=== PATIENT | female | born 1975 | race American Indian/Alaskan Native ===

== ENCOUNTER 2017-08-01 22:25 | Emergency (ER) | payer SELFPAY ==
[2017-08-01] MEDS ORDERED: ULTRAM ONE (23:55)
[2017-08-01] MEDS ORDERED: ULTRAM PO ONE (23:57)
[2017-08-02] MEDS ORDERED: CATAPRES PO ONE (00:51)
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
--- NOTE | 2017-08-02 01:45 | XRay Report ---
FINAL REPORT EXAM: XR FOREARM LT HISTORY: left forearm pain s/p fall TECHNIQUE: Two views of the left forearm were obtained. FINDINGS: There is no evidence of fracture or soft tissue injury. There is a spur along the dorsal margin of the olecranon. The wrist joint is not show any acute changes. IMPRESSION: No evidence of acute injury.
--- NOTE | 2017-08-02 01:48 | XRay Report ---
FINAL REPORT EXAM: XR KNEE 3V RT HISTORY: right knee pain s/p fall TECHNIQUE: AP and lateral views of the right knee were submitted. FINDINGS: There is no evidence of fracture or dislocation. All 3 compartments are well maintained. There is patellar spurring superiorly and inferiorly IMPRESSION: Patellar spurring. No acute injury.
--- NOTE | 2017-08-02 01:49 | XRay Report ---
FINAL REPORT EXAM: XR SPINE LUMBOSACRAL 2-3V HISTORY: low back pain s/p fall TECHNIQUE: Three views of the lumbar spine were submitted. FINDINGS: The disc heights and alignment appear normal. There is no evidence of acute fracture. The SI joints appear normal. The soft tissues are unremarkable. There is minimal endplate spurring in the lower dorsal spine. IMPRESSION: No evidence of acute injury.
--- NOTE | 2017-08-02 02:25 | Cat Scan Report ---
FINAL REPORT PROCEDURE: CT HEAD/BRAIN WO CON TECHNIQUE: Computerized tomography of the head was performed without contrast material. HISTORY: Headache after fall. COMPARISON: Nonenhanced and enhanced CT scans of the brain dated 07/01/2014. FINDINGS: Skull and scalp: Normal. Paranasal sinuses: Normal. Ventricles and subarachnoid spaces: Normal. Cerebrum: No evidence of hemorrhage, acute infarction or mass. 10 mm high attenuation extra-axial mass in the left vertex in the left frontal lobe posteriorly. Appearance similar to prior examinations. Cerebellum and brainstem: No evidence of hemorrhage, acute infarction or mass. Vasculature: Normal. Comments: None. IMPRESSION: No new CT evidence of acute intracranial pathology. 10 mm high attenuation extra-axial mass in the left vertex, similar to prior exam. Findings likely represent benign meningioma. Recommend MRI for further characterization if there is continued clinical concern and if patient has no contraindication to MRI.
[2017-08-02 05:00] VITALS: BP 140/89
== END 2017-08-02 03:20 | disposition home or self-care (01) ==
LOC: ED 22:25
DX: S56.912A Strain of unspecified muscles, fascia and tendons at forearm level, left arm, initial encounter (principal); S86.911A Strain of unspecified muscle(s) and tendon(s) at lower leg level, right leg, initial encounter; I10 Essential (primary) hypertension; G43.909 Migraine, unspecified, not intractable, without status migrainosus; I25.2 Old myocardial infarction; Z98.51 Tubal ligation status; V98.8XXA Other specified transport accidents, initial encounter; Y93.89 Activity, other specified; Y92.89 Other specified places as the place of occurrence of the external cause; Y99.8 Other external cause status
CPT/HCPCS: 70450; 72100

== ENCOUNTER 2017-10-17 17:50 | Emergency (ER) | payer SELFPAY ==
[2017-10-17] MEDS ORDERED: ASPIRIN ONE (17:58)
[2017-10-17] MEDS ORDERED: ASPIRIN PO ONE (17:59)
[2017-10-17 19:27] LABS: Basophils % (Auto) 0.3 % (0.0-1.8); Eosinophils # (Auto) 0.1 K/mm3 (0.0-0.4); Eosinophils % (Auto) 0.6 % (0.0-4.3); Hematocrit 33.8 % (30.3-42.9); Lymphocytes # (Auto) 2.9 K/mm3 (1.2-5.4); Lymphocytes % (Auto) 29.7 % (13.4-35.0); Mean Corpuscular HGB Conc 33 % (30-34); Mean Corpuscular Hemoglobin 27 pg (28-32); Mean Corpuscular Volume 81 fl (79-97); Monocytes # (Auto) 0.6 K/mm3 (0.0-0.8); Platelet Count 269 K/mm3 (140-440); Red Blood Count 4.16 M/mm3 (3.65-5.03); Red Cell Distribution Width 14.7 % (13.2-15.2)
[2017-10-17 19:43] LABS: BUN/Creatinine Ratio 11; Blood Urea Nitrogen 9 mg/dL (7-17); Calcium 9.5 mg/dL (8.4-10.2); Hemolysis Index 3
--- NOTE | 2017-10-17 23:49 | Emergency Department Report ---
ED Chest Pain HPI - General Chief Complaint: Chest Pain Stated Complaint: CHEST PAIN Time Seen by Provider: 10/17/17 23:26 Source: patient Mode of arrival: Ambulatory Limitations: No Limitations - History of Present Illness Initial Comments: 42-year-old woman presents with 3 day history of intermittent and somewhat mild left anterior chest pains, of variable nature and duration, generally lasting minutes, but sometimes hours, sometimes worse with deep breathing, or movement, without radiation, and which concerned her because of the persistence, and she comes in for evaluation to be sure there is no heart condition. Discomfort is mild, slightly achy, slightly tense, and generally 3-4 out of 10 in intensity. She is pain-free at this time. She has not had any fever chills or diaphoresis , no cough or congestion, no shortness of breath, no arm shoulder neck or jaw pain. No nausea or vomiting, she has been eating normally. Patient has a past history of hypertension, but due to lack of insurance, gets refills of her lisinopril only when she goes to the emergency department because she does not have funds to see a physician on a regular basis. Patient also Reports that she had a heart attack in 2014, treated here, but review her record shows that she had a false positive stress test, but cardiac catheterization was normal in all arteries, with ejection fraction of 60%, and normal echocardiography. CT scan of the brain and other visits, has also showed incidental finding of a small meningioma at the vertex, but otherwise patient has been stable. She does not smoke. Patient is currently pain-free, has no other symptoms, and is resting comfortably at time of examination Severity scale (0 -10): 4 - Related Data Previous Rx's Medication Instructions Recorded Last Taken Type Aspirin [Aspirin BABY CHEW TAB] 81 mg PO QDAY tab.chew 07/03/14 07/14/14 Rx Nitroglycerin [Nitrostat] 0.4 mg SL Q5M PRN #30 tab 07/03/14 07/14/14 Rx Acetaminophen/Codeine [Tylenol #3] 1 tab PO Q6H PRN #14 tab 07/15/14 Unknown Rx Ibuprofen [Motrin] 800 mg PO Q8HR PRN #30 tablet 07/29/15 Unknown Rx Lisinopril [Zestril TAB] 10 mg PO QDAY #30 tablet 07/29/15 Unknown Rx Metoprolol [Lopressor TAB] 12.5 mg PO BID #60 tablet 07/29/15 Unknown Rx HYDROcodone/APAP 7.5-325 [[place] 1 each PO Q8HR PRN #10 tablet 10/10/15 Unknown Rx 7.5-325 mg TAB] Cyclobenzaprine HCl [Flexeril 5 MG 5 mg PO TID PRN #15 tab 08/02/17 Unknown Rx TAB] Lisinopril [Prinivil] 10 mg PO DAILY #30 tablet 08/02/17 Unknown Rx Metoprolol [Lopressor] 12.5 mg PO BID #60 tablet 08/02/17 Unknown Rx Naproxen 500 mg PO TID PRN #15 tablet 08/02/17 Unknown Rx Allergies Allergy/AdvReac Type Severity Reaction Status Date / Time No Known Allergies Allergy Verified 07/14/14 15:58 Heart Score - HEART Score History: Slightly suspicious EKG: Normal Age: < 45 Risk factors: No known risk factors Troponin: < normal limit (negative cardiac catheterization 2014, normal coronary arteries) HEART Score: 0 ED Review of Systems ROS: Stated complaint: CHEST PAIN Other details as noted in HPI Comment: All other systems reviewed and negative Constitutional: denies: chills, fever Eyes: denies: vision change ENT: denies: throat pain Respiratory: denies: cough, orthopnea, shortness of breath, wheezing Cardiovascular: as per HPI, chest pain. denies: dyspnea on exertion, syncope, paroxysmal nocturnal dyspnea Endocrine: no symptoms reported Gastrointestinal: denies: abdominal pain, nausea, diarrhea Genitourinary: denies: urgency, dysuria, discharge Musculoskeletal: denies: back pain Skin: denies: rash, lesions Neurological: denies: headache, weakness, paresthesias Psychiatric: denies: anxiety, depression Hematological/Lymphatic: denies: easy bleeding, easy bruising ED Past Medical Hx - Past Medical History Previous Medical History?: No Hx Hypertension: Yes Hx Heart Attack/AMI: Yes (correction: normal cardiac catheterization and echocardiogram, July 2014) Hx Headaches / Migraines: Yes Additional medical history: sickle cell trait - Surgical History Additional Surgical History: tubal ligation. Cardiac cauterization July 04, 2014 - Social History Smoking Status: Never Smoker Substance Use Type: None - Medications Home Medications: Home Medications Medication Instructions Recorded Confirmed Last Taken Type Aspirin [Aspirin BABY CHEW TAB] 81 mg PO QDAY tab.chew 07/03/14 07/14/14 Rx Nitroglycerin [Nitrostat] 0.4 mg SL Q5M PRN #30 tab 07/03/14 07/14/14 07/14/14 Rx Acetaminophen/Codeine [Tylenol #3] 1 tab PO Q6H PRN #14 tab 07/15/14 Unknown Rx Ibuprofen [Motrin] 800 mg PO Q8HR PRN #30 tablet 07/29/15 Unknown Rx Lisinopril [Zestril TAB] 10 mg PO QDAY #30 tablet 07/29/15 Unknown Rx Metoprolol [Lopressor TAB] 12.5 mg PO BID #60 tablet 07/29/15 Unknown Rx HYDROcodone/APAP 7.5-325 [[place] 1 each PO Q8HR PRN #10 tablet 10/10/15 Unknown Rx 7.5-325 mg TAB] Cyclobenzaprine HCl [Flexeril 5 MG 5 mg PO TID PRN #15 tab 08/02/17 Unknown Rx TAB] Lisinopril [Prinivil] 10 mg PO DAILY #30 tablet 08/02/17 Unknown Rx Metoprolol [Lopressor] 12.5 mg PO BID #60 tablet 08/02/17 Unknown Rx Naproxen 500 mg PO TID PRN #15 tablet 08/02/17 Unknown Rx ED Physical Exam - General Limitations: No Limitations General appearance: alert, in no apparent distress - Head Head exam: Present: atraumatic, normocephalic - Eye Eye exam: Present: normal appearance, PERRL, EOMI - ENT ENT exam: Present: normal exam, mucous membranes moist - Neck Neck exam: Present: normal inspection, full ROM. Absent: tenderness - Respiratory Respiratory exam: Present: normal lung sounds bilaterally. Absent: respiratory distress, wheezes, rales, rhonchi, chest wall tenderness (nontender on palpation , but patient reports being pain-free at this time.) - Cardiovascular Cardiovascular Exam: Present: regular rate, normal rhythm, normal heart sounds. Absent: systolic murmur, diastolic murmur, gallop, S3, S4 - GI/Abdominal GI/Abdominal exam: Present: soft, normal bowel sounds. Absent: distended, tenderness, guarding, rebound - Rectal Rectal exam: Present: deferred - Extremities Exam Extremities exam: Present: normal inspection. Absent: pedal edema - Back Exam Back exam: Present: normal inspection. Absent: tenderness - Neurological Exam Neurological exam: Present: alert, oriented X3, CN II-XII intact. Absent: motor sensory deficit - Psychiatric Psychiatric exam: Present: normal affect, normal mood - Skin Skin exam: Present: warm, dry, intact ED Course Vital Signs 10/17/17 10/17/17 10/17/17 17:57 22:01 23:39 Temperature 37.3 C 36.7 C 36.8 C Pulse Rate 96 H 96 H 93 H Respiratory 16 14 18 Rate Blood Pressure 163/104 155/92 Blood Pressure 167/105 [Left] O2 Sat by Pulse 98 99 99 Oximetry KENZIE score - Kenzie Score Age > 65: (0) No Aspirin use within the Past 7 Days: (0) No 3 or more CAD Risk Factors: (1) Yes 2 or more Angina events in past 24 hrs: (1) Yes Known CAD with more than 50% Stenosis: (0) No Elevated Cardiac Markers: (0) No ST Deviation Greater than 0.5mm: (0) No KENZIE Score: 2 ED Medical Decision Making - Lab Data Result diagrams: 10/17/17 18:55 10/17/17 18:55 - EKG Data -: EKG Interpreted by Me (EKG was taken at 1804 and 2157 hrs. identical, no change from prior tracing) EKG shows normal: sinus rhythm (97 bpm), axis (QRS axis 41), intervals (normal IN intervals, normal QRS interval, QT interval normal at 445 and 442 ms corrected), QRS complexes, ST-T waves (nonspecific ST-T wave flattening, unchanged between tracings) Rate: normal - EKG Data When compared to previous EKG there are: no significant change (prior tracing of 10/10/2015) - Radiology Data Radiology results: report reviewed (portable chest x-ray) Chest x-ray, single view portable, shows no acute cardiopulmonary abnormality, with normal heart size, normal lung [place] bilaterally, no acute infiltrates, no pulmonary vascular congestion. This is not unremarkable reading. - Medical Decision Making Patient has typical findings of noncardiac chest pain, most likely muscular tenderness, possibly costochondritis, but negative examination here, with normal troponin levels, normal EKG twice, unchanged from previous tracing. Also , I cannot confirm patient's reported history of coronary artery disease, as her cardiac catheterization in 2014 showed normal coronary arteries. Given patient's atypical presentation, normal examination, this likely does not represent cardiac disease, but she will be referred back to her primary care physician, and may benefit from repeat nuclear stress testing on follow-up. She will be treated symptomatically with NSAIDs. - Differential Diagnosis acute coronary syndrome, pneumonia, muscular skeletal strain Critical Care Time: No Critical care attestation.: If time is entered above; I have spent that time in minutes in the direct care of this critically ill patient, excluding procedure time. ED Disposition Clinical Impression: Non-cardiac chest pain Disposition: - TO HOME OR SELFCARE Is pt being admited?: No Does the pt Need Aspirin: No Condition: Stable Instructions: Chest Pain (ED), Costochondritis (ED), Thoracic Pain (ED) Additional Instructions: Examination today is stable, and your symptoms, physical exam, and lab evaluation are stable, and did not suggest cardiac disease. Additionally, we have reviewed her prior cardiac catheterization, and this was normal, showing no findings of disease in any of your coronary arteries, and echocardiogram showed normal heart function as well. This is a reassuring finding, and indicates that your discomfort is typical of her symptoms today, and is likely muscular in origin. This can be treated with heating pad, gentle stretching, and nonsteroidal anti-inflammatories such as ibuprofen or Aleve for discomfort. We have provided referrals for an internal medicine physician for your follow- up for your general medical care, Referral for her health care coordinator, Dr. Bryan, as you may benefit from having a repeat cardiac stress test, which can safely be arranged in your health care coordinator's office on an outpatient basis, to see if there been any changes since your last catheterization. Return anytime for emergent repeat examination if she have any recurrent symptoms that are particularly worrisome for you. Otherwise you may continue your regular activities as before. Referrals: PRIMARY CARE, [Primary Care Provider] - 3-5 Days DAISHA BRYAN MD [Staff Physician] - 3-5 Days BHARGAV LOMAX MD [Staff Physician] - 3-5 Days Time of Disposition: 00:02
--- NOTE | 2017-10-18 00:04 | XRay Report ---
FINAL REPORT EXAM: XR CHEST 1V AP HISTORY: left ant. chest pain TECHNIQUE: Frontal portable view of the chest Comparison: None FINDINGS: There is no evidence of infiltrate, pneumothorax or pleural fluid collection. The cardiac silhouette is enlarged. This may be exaggerated by portable technique. The thoracic aorta is tortuous. The bony structures are unremarkable. Visualization detail of the thoracic spine is limited. IMPRESSION: 1. No evidence of an acute pulmonary process. 2. Enlarged cardiac silhouette. This may be exaggerated by portable technique. 3. Tortuosity thoracic aorta.
[2017-10-18 00:20] VITALS: BP 159/97
== END 2017-10-18 00:27 | disposition home or self-care (01) ==
LOC: ED 17:50
DX: R07.89 Other chest pain (principal); I10 Essential (primary) hypertension; G43.909 Migraine, unspecified, not intractable, without status migrainosus; I25.2 Old myocardial infarction; D57.3 Sickle-cell trait; Z98.51 Tubal ligation status
CPT/HCPCS: 36415; 71045; 80048; 84484; 85025; 93005; 93010; 99284

== ENCOUNTER 2020-01-17 11:07 | Emergency (ER) | payer SELFPAY ==
--- NOTE | 2020-01-17 12:07 | Emergency Department Report ---
ED ENT HPI - General Chief complaint: Dental/Oral Stated complaint: DENTAL PAIN,ABSCESS Time Seen by Provider: 01/17/20 12:01 Source: patient Mode of arrival: Ambulatory Limitations: No Limitations - History of Present Illness MD complaint: tooth pain -: Gradual, days(s) (1) Location: tooth # Severity: moderate Quality: dull Consistency: constant Worsens with: eating, movement Context- Dental: history of dental caries, poor dental care Associated Symptoms: toothache. denies: gum swelling, pain with swallowing, sore throat - Related Data Previous Rx's Medication Instructions Recorded Last Taken Type Aspirin [Aspirin BABY CHEW TAB] 81 mg PO QDAY tab.chew 07/03/14 07/14/14 Rx Nitroglycerin [Nitrostat] 0.4 mg SL Q5M PRN #30 tab 07/03/14 07/14/14 Rx Acetaminophen/Codeine [Tylenol #3] 1 tab PO Q6H PRN #14 tab 07/15/14 Unknown Rx Metoprolol [Lopressor TAB] 12.5 mg PO BID #60 tablet 07/29/15 Unknown Rx HYDROcodone/APAP 7.5-325 [[place] 1 each PO Q8HR PRN #10 tablet 10/10/15 Unknown Rx 7.5-325 mg TAB] Cyclobenzaprine HCl [Flexeril 5 MG 5 mg PO TID PRN #15 tab 08/02/17 Unknown Rx TAB] Metoprolol [Lopressor] 12.5 mg PO BID #60 tablet 08/02/17 Unknown Rx Naproxen 500 mg PO TID PRN #15 tablet 08/02/17 Unknown Rx lisinopriL [Prinivil] 10 mg PO DAILY #30 tablet 08/02/17 Unknown Rx Ibuprofen [Motrin 800 MG tab] 800 mg PO Q8HR PRN #30 tablet 10/18/17 Unknown Rx lisinopriL [Zestril TAB] 10 mg PO QDAY #30 tablet 10/18/17 Unknown Rx Amoxicillin [Amoxicillin TAB] 875 mg PO BID #20 tablet 01/17/20 Unknown Rx Chlorhexidine Mouthwash [Peridex] 15 ml MM BID #1 bottle 01/17/20 Unknown Rx Ketorolac [Toradol] 10 mg PO Q6H PRN #15 tablet 01/17/20 Unknown Rx Lidocaine Viscous 2% 5 ml MM Q3H PRN #120 udc 01/17/20 Unknown Rx Allergies Allergy/AdvReac Type Severity Reaction Status Date / Time No Known Allergies Allergy Verified 07/14/14 15:58 ED Dental HPI - General Chief complaint: Dental/Oral Stated complaint: DENTAL PAIN,ABSCESS Time Seen by Provider: 01/17/20 12:01 Source: patient Mode of arrival: Ambulatory Limitations: No Limitations - Related Data Previous Rx's Medication Instructions Recorded Last Taken Type Aspirin [Aspirin BABY CHEW TAB] 81 mg PO QDAY tab.chew 07/03/14 07/14/14 Rx Nitroglycerin [Nitrostat] 0.4 mg SL Q5M PRN #30 tab 07/03/14 07/14/14 Rx Acetaminophen/Codeine [Tylenol #3] 1 tab PO Q6H PRN #14 tab 07/15/14 Unknown Rx Metoprolol [Lopressor TAB] 12.5 mg PO BID #60 tablet 07/29/15 Unknown Rx HYDROcodone/APAP 7.5-325 [[place] 1 each PO Q8HR PRN #10 tablet 10/10/15 Unknown Rx 7.5-325 mg TAB] Cyclobenzaprine HCl [Flexeril 5 MG 5 mg PO TID PRN #15 tab 08/02/17 Unknown Rx TAB] Metoprolol [Lopressor] 12.5 mg PO BID #60 tablet 08/02/17 Unknown Rx Naproxen 500 mg PO TID PRN #15 tablet 08/02/17 Unknown Rx lisinopriL [Prinivil] 10 mg PO DAILY #30 tablet 08/02/17 Unknown Rx Ibuprofen [Motrin 800 MG tab] 800 mg PO Q8HR PRN #30 tablet 10/18/17 Unknown Rx lisinopriL [Zestril TAB] 10 mg PO QDAY #30 tablet 10/18/17 Unknown Rx Amoxicillin [Amoxicillin TAB] 875 mg PO BID #20 tablet 01/17/20 Unknown Rx Chlorhexidine Mouthwash [Peridex] 15 ml MM BID #1 bottle 01/17/20 Unknown Rx Ketorolac [Toradol] 10 mg PO Q6H PRN #15 tablet 01/17/20 Unknown Rx Lidocaine Viscous 2% 5 ml MM Q3H PRN #120 udc 01/17/20 Unknown Rx Allergies Allergy/AdvReac Type Severity Reaction Status Date / Time No Known Allergies Allergy Verified 07/14/14 15:58 ED Review of Systems ROS: Stated complaint: DENTAL PAIN,ABSCESS Other details as noted in HPI Comment: All other systems reviewed and negative ED Past Medical Hx - Past Medical History Previous Medical History?: Yes Hx Hypertension: Yes Hx Heart Attack/AMI: Yes (correction: normal cardiac catheterization and echocardiogram, July 2014) Hx Headaches / Migraines: Yes Additional medical history: sickle cell trait - Surgical History Past Surgical History?: Yes Additional Surgical History: tubal ligation. Cardiac cauterization July 04, 2014 - Social History Smoking Status: Never Smoker Substance Use Type: None - Medications Home Medications: Home Medications Medication Instructions Recorded Confirmed Last Taken Type Aspirin [Aspirin BABY CHEW TAB] 81 mg PO QDAY tab.chew 07/03/14 07/14/14 07/14/14 Rx Nitroglycerin [Nitrostat] 0.4 mg SL Q5M PRN #30 tab 07/03/14 07/14/14 07/14/14 Rx Acetaminophen/Codeine [Tylenol #3] 1 tab PO Q6H PRN #14 tab 07/15/14 Unknown Rx Metoprolol [Lopressor TAB] 12.5 mg PO BID #60 tablet 07/29/15 Unknown Rx HYDROcodone/APAP 7.5-325 [[place] 1 each PO Q8HR PRN #10 tablet 10/10/15 Unknown Rx 7.5-325 mg TAB] Cyclobenzaprine HCl [Flexeril 5 MG 5 mg PO TID PRN #15 tab 08/02/17 Unknown Rx TAB] Metoprolol [Lopressor] 12.5 mg PO BID #60 tablet 08/02/17 Unknown Rx Naproxen 500 mg PO TID PRN #15 tablet 08/02/17 Unknown Rx lisinopriL [Prinivil] 10 mg PO DAILY #30 tablet 08/02/17 Unknown Rx Ibuprofen [Motrin 800 MG tab] 800 mg PO Q8HR PRN #30 tablet 10/18/17 Unknown Rx lisinopriL [Zestril TAB] 10 mg PO QDAY #30 tablet 10/18/17 Unknown Rx Amoxicillin [Amoxicillin TAB] 875 mg PO BID #20 tablet 01/17/20 Unknown Rx Chlorhexidine Mouthwash [Peridex] 15 ml MM BID #1 bottle 01/17/20 Unknown Rx Ketorolac [Toradol] 10 mg PO Q6H PRN #15 tablet 01/17/20 Unknown Rx Lidocaine Viscous 2% 5 ml MM Q3H PRN #120 udc 01/17/20 Unknown Rx ED Physical Exam - General Limitations: No Limitations General appearance: alert, in no apparent distress - Head Head exam: Present: atraumatic, normocephalic - Eye Eye exam: Present: normal appearance, PERRL, EOMI Pupils: Present: normal accommodation - ENT ENT exam: Present: normal exam, mucous membranes moist, other (Infected right lower dental molar tooth #30 with some adjacent gingival erythema and abscess development. No no no exudate no bleeding. There is obvious inflammatory changes. Significant dental erosion is noted in a few caries noted throughout the dentition. Airway is patent tongue and uvula are midline.) - Neck Neck exam: Present: normal inspection - Respiratory Respiratory exam: Present: normal lung sounds bilaterally. Absent: respiratory distress - Cardiovascular Cardiovascular Exam: Present: regular rate, normal rhythm. Absent: systolic murmur, diastolic murmur, rubs, gallop - GI/Abdominal GI/Abdominal exam: Present: soft, normal bowel sounds - Extremities Exam Extremities exam: Present: normal inspection - Back Exam Back exam: Present: normal inspection - Neurological Exam Neurological exam: Present: alert, oriented X3 - Psychiatric Psychiatric exam: Present: normal affect, normal mood - Skin Skin exam: Present: warm, dry, intact, normal color. Absent: rash ED Medical Decision Making - Medical Decision Making 44-year-old female with reemergence of a right lower dental infection that has evolved to an abscess the current plan is to treat the abscess with antibiotics topical and ingestive and also treat the pain topical and injectable as well. Did reiterate the need to follow-up with the dentist once the infection has resolved for definitive treatment of the severe emergent infection. Advised on on dietary changes to promote healing as well Critical care attestation.: If time is entered above; I have spent that time in minutes in the direct care of this critically ill patient, excluding procedure time. ED Disposition Clinical Impression: Dental abscess Disposition: TO HOME OR SELFCARE Is pt being admited?: No Does the pt Need Aspirin: No Condition: Stable Instructions: Dental Abscess Prescriptions: Amoxicillin [Amoxicillin TAB] 875 mg PO BID #20 tablet Lidocaine Viscous 2% 5 ml MM Q3H PRN #120 udc PRN Reason: Pain, Moderate (4-6) Chlorhexidine Mouthwash [Peridex] 15 ml MM BID #1 bottle Ketorolac [Toradol] 10 mg PO Q6H PRN #15 tablet PRN Reason: Pain Referrals: [facility] [Outside] - 3-5 Days
[2020-01-17 13:34] VITALS: BP 148/84
== END 2020-01-17 13:05 | disposition home or self-care (01) ==
LOC: ED 11:07
DX: K04.7 Periapical abscess without sinus (principal); I10 Essential (primary) hypertension; I25.2 Old myocardial infarction; G43.909 Migraine, unspecified, not intractable, without status migrainosus; Z98.51 Tubal ligation status; Z98.890 Other specified postprocedural states; Z79.82 Long term (current) use of aspirin; Z79.899 Other long term (current) drug therapy
CPT/HCPCS: 99281

== ENCOUNTER 2020-03-17 12:18 | Emergency (ER) | payer SELFPAY ==
[2020-03-17 12:34] VITALS: BP 190/117
--- NOTE | 2020-03-17 12:52 | Emergency Department Report ---
ED ENT HPI - General Chief complaint: Skin/Abscess/Foreign Body Stated complaint: ABCESS/SWOLLEN JAW RT SIDE Time Seen by Provider: 03/17/20 12:44 Source: patient Mode of arrival: Ambulatory Limitations: No Limitations - History of Present Illness Initial comments: This is a 45-year-old female nontoxic, well nourished in appearance, no acute signs of distress presents to the ED with c/o of right lower toothache with some swelling that occurred 3 days ago. Patient stated she was seen here few months ago and was treated with Augmentin and has resolved but came back again. Patient describes toothache as aching level of 8 out of 10. Patient denies any numbness, tingling, fever, chills, headache, stiff neck, abdominal pain, chest pain, shortness of breath. Patient denies any drug allergies. Patient stated has past medical history of hypertension and forgot to take her blood pressure medication this morning. MD complaint: tooth pain -: days(s) Location: tooth # 1 - Pain here Severity: mild Severity scale (0 -10): 8 Quality: aching Consistency: constant Improves with: none Worsens with: none Context- Dental: history of dental caries, poor dental care Associated Symptoms: gum swelling, toothache. denies: fever, cough, pain with swallowing, sore throat, tinnitus, hearing loss, discharge from ear, rhinorrhea - Related Data Previous Rx's Medication Instructions Recorded Last Taken Type Aspirin [Aspirin BABY CHEW TAB] 81 mg PO QDAY tab.chew 07/03/14 07/14/14 Rx Nitroglycerin [Nitrostat] 0.4 mg SL Q5M PRN #30 tab 07/03/14 07/14/14 Rx Acetaminophen/Codeine [Tylenol #3] 1 tab PO Q6H PRN #14 tab 07/15/14 Unknown Rx Metoprolol [Lopressor TAB] 12.5 mg PO BID #60 tablet 07/29/15 Unknown Rx HYDROcodone/APAP 7.5-325 [[place] 1 each PO Q8HR PRN #10 tablet 10/10/15 Unknown Rx 7.5-325 mg TAB] Cyclobenzaprine HCl [Flexeril 5 MG 5 mg PO TID PRN #15 tab 08/02/17 Unknown Rx TAB] Metoprolol [Lopressor] 12.5 mg PO BID #60 tablet 08/02/17 Unknown Rx Naproxen 500 mg PO TID PRN #15 tablet 08/02/17 Unknown Rx lisinopriL [Prinivil] 10 mg PO DAILY #30 tablet 08/02/17 Unknown Rx Ibuprofen [Motrin 800 MG tab] 800 mg PO Q8HR PRN #30 tablet 10/18/17 Unknown Rx lisinopriL [Zestril TAB] 10 mg PO QDAY #30 tablet 10/18/17 Unknown Rx Amoxicillin [Amoxicillin TAB] 875 mg PO BID #20 tablet 01/17/20 Unknown Rx Chlorhexidine Mouthwash [Peridex] 15 ml MM BID #1 bottle 01/17/20 Unknown Rx Ketorolac [Toradol] 10 mg PO Q6H PRN #15 tablet 01/17/20 Unknown Rx Lidocaine Viscous 2% 5 ml MM Q3H PRN #120 udc 01/17/20 Unknown Rx Chlorhexidine Mouthwash [Peridex] 15 ml MM BID #1 bottle 03/17/20 Unknown Rx Clindamycin [Clindamycin CAP] 300 mg PO Q8H #21 cap 03/17/20 Unknown Rx Naproxen 500 mg PO Q12H PRN #12 tablet 03/17/20 Unknown Rx Allergies Allergy/AdvReac Type Severity Reaction Status Date / Time No Known Allergies Allergy Verified 03/17/20 12:28 ED Dental HPI - General Chief complaint: Skin/Abscess/Foreign Body Stated complaint: ABCESS/SWOLLEN JAW RT SIDE Time Seen by Provider: 03/17/20 12:44 Source: patient Mode of arrival: Ambulatory Limitations: No Limitations - Related Data Previous Rx's Medication Instructions Recorded Last Taken Type Aspirin [Aspirin BABY CHEW TAB] 81 mg PO QDAY tab.chew 07/03/14 07/14/14 Rx Nitroglycerin [Nitrostat] 0.4 mg SL Q5M PRN #30 tab 07/03/14 07/14/14 Rx Acetaminophen/Codeine [Tylenol #3] 1 tab PO Q6H PRN #14 tab 07/15/14 Unknown Rx Metoprolol [Lopressor TAB] 12.5 mg PO BID #60 tablet 07/29/15 Unknown Rx HYDROcodone/APAP 7.5-325 [[place] 1 each PO Q8HR PRN #10 tablet 10/10/15 Unknown Rx 7.5-325 mg TAB] Cyclobenzaprine HCl [Flexeril 5 MG 5 mg PO TID PRN #15 tab 08/02/17 Unknown Rx TAB] Metoprolol [Lopressor] 12.5 mg PO BID #60 tablet 08/02/17 Unknown Rx Naproxen 500 mg PO TID PRN #15 tablet 08/02/17 Unknown Rx lisinopriL [Prinivil] 10 mg PO DAILY #30 tablet 08/02/17 Unknown Rx Ibuprofen [Motrin 800 MG tab] 800 mg PO Q8HR PRN #30 tablet 10/18/17 Unknown Rx lisinopriL [Zestril TAB] 10 mg PO QDAY #30 tablet 10/18/17 Unknown Rx Amoxicillin [Amoxicillin TAB] 875 mg PO BID #20 tablet 01/17/20 Unknown Rx Chlorhexidine Mouthwash [Peridex] 15 ml MM BID #1 bottle 01/17/20 Unknown Rx Ketorolac [Toradol] 10 mg PO Q6H PRN #15 tablet 01/17/20 Unknown Rx Lidocaine Viscous 2% 5 ml MM Q3H PRN #120 udc 01/17/20 Unknown Rx Chlorhexidine Mouthwash [Peridex] 15 ml MM BID #1 bottle 03/17/20 Unknown Rx Clindamycin [Clindamycin CAP] 300 mg PO Q8H #21 cap 03/17/20 Unknown Rx Naproxen 500 mg PO Q12H PRN #12 tablet 03/17/20 Unknown Rx Allergies Allergy/AdvReac Type Severity Reaction Status Date / Time No Known Allergies Allergy Verified 03/17/20 12:28 ED Review of Systems ROS: Stated complaint: ABCESS/SWOLLEN JAW RT SIDE Other details as noted in HPI Comment: All other systems reviewed and negative Constitutional: denies: chills, fever Eyes: denies: eye pain, eye discharge, vision change ENT: dental pain. denies: ear pain, throat pain Respiratory: denies: cough, shortness of breath, wheezing Cardiovascular: denies: chest pain, palpitations Endocrine: no symptoms reported Gastrointestinal: denies: abdominal pain, nausea, diarrhea Genitourinary: denies: urgency, dysuria, discharge Musculoskeletal: denies: back pain, joint swelling, arthralgia Skin: denies: rash, lesions Neurological: denies: headache, weakness, paresthesias Psychiatric: denies: anxiety, depression Hematological/Lymphatic: denies: easy bleeding, easy bruising ED Past Medical Hx - Past Medical History Hx Hypertension: Yes Hx Heart Attack/AMI: Yes (correction: normal cardiac catheterization and echocardiogram, July 2014) Hx Headaches / Migraines: Yes Additional medical history: sickle cell trait - Surgical History Additional Surgical History: tubal ligation. Cardiac cauterization July 04, 2014 - Social History Smoking Status: Never Smoker Substance Use Type: None - Medications Home Medications: Home Medications Medication Instructions Recorded Confirmed Last Taken Type Aspirin [Aspirin BABY CHEW TAB] 81 mg PO QDAY tab.chew 07/03/14 07/14/14 07/14/14 Rx Nitroglycerin [Nitrostat] 0.4 mg SL Q5M PRN #30 tab 07/03/14 07/14/14 07/14/14 Rx Acetaminophen/Codeine [Tylenol #3] 1 tab PO Q6H PRN #14 tab 07/15/14 Unknown Rx Metoprolol [Lopressor TAB] 12.5 mg PO BID #60 tablet 07/29/15 Unknown Rx HYDROcodone/APAP 7.5-325 [[place] 1 each PO Q8HR PRN #10 tablet 10/10/15 Unknown Rx 7.5-325 mg TAB] Cyclobenzaprine HCl [Flexeril 5 MG 5 mg PO TID PRN #15 tab 08/02/17 Unknown Rx TAB] Metoprolol [Lopressor] 12.5 mg PO BID #60 tablet 08/02/17 Unknown Rx Naproxen 500 mg PO TID PRN #15 tablet 08/02/17 Unknown Rx lisinopriL [Prinivil] 10 mg PO DAILY #30 tablet 08/02/17 Unknown Rx Ibuprofen [Motrin 800 MG tab] 800 mg PO Q8HR PRN #30 tablet 10/18/17 Unknown Rx lisinopriL [Zestril TAB] 10 mg PO QDAY #30 tablet 10/18/17 Unknown Rx Amoxicillin [Amoxicillin TAB] 875 mg PO BID #20 tablet 01/17/20 Unknown Rx Chlorhexidine Mouthwash [Peridex] 15 ml MM BID #1 bottle 01/17/20 Unknown Rx Ketorolac [Toradol] 10 mg PO Q6H PRN #15 tablet 01/17/20 Unknown Rx Lidocaine Viscous 2% 5 ml MM Q3H PRN #120 udc 01/17/20 Unknown Rx Chlorhexidine Mouthwash [Peridex] 15 ml MM BID #1 bottle 03/17/20 Unknown Rx Clindamycin [Clindamycin CAP] 300 mg PO Q8H #21 cap 03/17/20 Unknown Rx Naproxen 500 mg PO Q12H PRN #12 tablet 03/17/20 Unknown Rx ED Physical Exam - General Limitations: No Limitations General appearance: alert, in no apparent distress - Head Head exam: Present: atraumatic, normocephalic - Eye Eye exam: Present: normal appearance - Expanded ENT Exam Expanded Ear exam: Present: normal external inspection Mouth exam: Present: normal external inspection, tongue normal. Absent: drooling, trismus, muffled voice Teeth exam: Present: dental caries, fractured tooth #, dental tenderness #, gingival enlargement, other (Slight facial swelling with no induration or fluctuance.) Throat exam: Positive: normal inspection, other (Uvula midline). Negative: tonsillar erythema, tonsillomegaly, tonsillar exudate, R peritonsillar mass, L peritonsillar mass - Neck Neck exam: Present: normal inspection, full ROM. Absent: tenderness, meningismus, lymphadenopathy - Respiratory Respiratory exam: Absent: respiratory distress - Extremities Exam Extremities exam: Present: full ROM - Back Exam Back exam: Present: normal inspection, full ROM. Absent: tenderness, CVA tenderness (R), CVA tenderness (L), muscle spasm, paraspinal tenderness, vertebral tenderness, rash noted - Neurological Exam Neurological exam: Present: alert, oriented X3, normal gait - Psychiatric Psychiatric exam: Present: normal affect, normal mood - Skin Skin exam: Present: warm, dry, intact, normal color. Absent: rash ED Course Vital Signs 03/17/20 12:33 Temperature 98.7 F Pulse Rate 107 H Respiratory 20 Rate Blood Pressure 190/117 [Right] O2 Sat by Pulse 97 Oximetry - Reevaluation(s) Reevaluation #1: 03/17/20 13:02 Patient is speaking in full sentences with no signs of distress noted. ED Medical Decision Making - Medical Decision Making This is a 45-year-old female that presents with gingivitis and dental caries. Patient is stable and was examined by me. There is slight swelling to the right lower mandible but upon exam there is no induration or fluctuance to drain the abscess. Patient is discharged with clindamycin. He had strict instructions to follow-up with oral maxillary surgeon in 24 hours or if symptoms would worsen to return to emergency room as was possible. Patient is discharged with naproxen, Peridex and Clinda. At time of discharge, the patient does not seem toxic or ill in appearance. No acute signs of distress noted. Patient agrees to discharge treatment plan of care. No further questions noted by the patient. According to ACEP: (1) in ED patients with asymptomatic markedly elevated blood pressure, routine screening for acute target organ injury (eg, serum creatinine, urinalysis, ECG) is not required. (1) In patients with asymptomatic markedly elevated blood pressure, routine ED medical intervention is not required. Critical care attestation.: If time is entered above; I have spent that time in minutes in the direct care of this critically ill patient, excluding procedure time. ED Disposition Clinical Impression: Dental abscess Disposition: [id number] TO HOME OR SELFCARE Is pt being admited?: No Does the pt Need Aspirin: No Condition: Stable Instructions: Dental Abscess, [id number] Additional Instructions: Follow-up with oral maxillary surgeon in 24 hours or if symptoms would worsen to return to emergency room as was possible. 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 [employer] Address: [facility] [id number], [place] [address] Hours: Wednesday Closed Wednesday 8AM-1PM, 2-5PM Wednesday 8AM-1PM, 2-5PM Wednesday 8AM-1PM, 2-5PM 8AM-1PM, 2-5PM Wednesday 7AM-2PM Wednesday Closed Prescriptions: Clindamycin [Clindamycin CAP] 300 mg PO Q8H #21 cap Naproxen 500 mg PO Q12H PRN #12 tablet PRN Reason: Pain , Severe (7-10) Chlorhexidine Mouthwash [Peridex] 15 ml MM BID #1 bottle Referrals: PRIMARY MD CUATE [Referring] - 3-5 Days MICHELLE WHYTE MD [Staff Physician] - 3-5 Days [facility] [Outside] - 3-5 Days Time of Disposition: 13:05
== END 2020-03-17 13:35 | disposition home or self-care (01) ==
LOC: ED 12:18
DX: K04.7 Periapical abscess without sinus (principal); I10 Essential (primary) hypertension; I25.2 Old myocardial infarction; G43.909 Migraine, unspecified, not intractable, without status migrainosus; Z98.51 Tubal ligation status; Z98.890 Other specified postprocedural states; Z79.899 Other long term (current) drug therapy
CPT/HCPCS: 99282

== ENCOUNTER 2020-07-31 16:11 | Emergency (ER) | payer SELFPAY ==
--- NOTE | 2020-07-31 19:38 | Emergency Department Report ---
Upper Extremity - HPI Chief Complaint: Extremity Injury, Upper Stated Complaint: RIGHT ARM AND HAND PAIN Time Seen by Provider: 07/31/20 19:25 Upper Extremity: Right Forearm, Right Wrist, Right Hand, Right Thumb, Right Index Finger, Right Middle Finger, Right Ring Finger, Right Little Finger Occurred When: >5 Days (about 1 mth) Severity: severe Symptoms: Yes Pain with Movement, Yes Limited Range of Movement, No Deformity, No Numbness, No Weakness, No Swelling, No Bruising/Ecchymosis, No Laceration or Abrasion Other History: 45-year-old female with a past medical history of hypertension presents to the ER today with complaints of pain in her right fingers and hand especially the right thumb and right wrist which radiates down into her right forearm. Patient reports difficulty fully extending her right thumb due to pain and also feels like her thumb gets stuck in certain positions. She reports tingling in her fingers. She denies any injury. She states that she right reports at work but typically just one sheet a day. She reports no swelling, bruising, erythema or any other associated symptoms. ED Review of Systems ROS: Stated complaint: RIGHT ARM AND HAND PAIN Other details as noted in HPI Comment: All other systems reviewed and negative Constitutional: denies: chills, fever Eyes: denies: eye pain, eye discharge, vision change Respiratory: denies: cough, shortness of breath, SOB with exertion, SOB at rest, wheezing Cardiovascular: denies: chest pain, palpitations, edema, syncope, paroxysmal nocturnal dyspnea Gastrointestinal: denies: abdominal pain, nausea, diarrhea, constipation, hematemesis, melena, hematochezia Genitourinary: denies: urgency, dysuria, discharge Musculoskeletal: arthralgia, myalgia Skin: denies: rash, lesions, change in color, change in hair/nails Neurological: denies: headache, weakness, numbness, paresthesias, confusion, abnormal gait, vertigo Psychiatric: as per HPI. denies: auditory hallucinations, visual hallucinations, homicidal thoughts, suicidal thoughts Hematological/Lymphatic: denies: easy bleeding, easy bruising ED Past Medical Hx - Past Medical History Hx Hypertension: Yes Hx Heart Attack/AMI: Yes (normal cardiac catheterization and echocardiogram, July 2014) Hx Headaches / Migraines: Yes Additional medical history: sickle cell trait - Surgical History Additional Surgical History: tubal ligation. Cardiac cauterization July 04, 2014 - Social History Smoking Status: Never Smoker Substance Use Type: None - Medications Home Medications: Home Medications Medication Instructions Recorded Confirmed Last Taken Type Aspirin [Aspirin BABY CHEW TAB] 81 mg PO QDAY tab.chew 07/03/14 07/14/14 07/14/14 Rx Nitroglycerin [Nitrostat] 0.4 mg SL Q5M PRN #30 tab 07/03/14 07/14/14 07/14/14 Rx Acetaminophen/Codeine [Tylenol #3] 1 tab PO Q6H PRN #14 tab 07/15/14 Unknown Rx Metoprolol [Lopressor TAB] 12.5 mg PO BID #60 tablet 07/29/15 Unknown Rx HYDROcodone/APAP 7.5-325 [[place] 1 each PO Q8HR PRN #10 tablet 10/10/15 Unknown Rx 7.5-325 mg TAB] Cyclobenzaprine HCl [Flexeril 5 MG 5 mg PO TID PRN #15 tab 08/02/17 Unknown Rx TAB] Naproxen 500 mg PO TID PRN #15 tablet 08/02/17 Unknown Rx lisinopriL [Prinivil] 10 mg PO DAILY #30 tablet 08/02/17 Unknown Rx lisinopriL [Zestril TAB] 10 mg PO QDAY #30 tablet 10/18/17 Unknown Rx Amoxicillin [Amoxicillin TAB] 875 mg PO BID #20 tablet 01/17/20 Unknown Rx Chlorhexidine Mouthwash [Peridex] 15 ml MM BID #1 bottle 01/17/20 Unknown Rx Ketorolac [Toradol] 10 mg PO Q6H PRN #15 tablet 01/17/20 Unknown Rx Lidocaine Viscous 2% 5 ml MM Q3H PRN #120 udc 01/17/20 Unknown Rx Chlorhexidine Mouthwash [Peridex] 15 ml MM BID #1 bottle 03/17/20 Unknown Rx Clindamycin [Clindamycin CAP] 300 mg PO Q8H #21 cap 03/17/20 Unknown Rx Naproxen 500 mg PO Q12H PRN #12 tablet 03/17/20 Unknown Rx Ibuprofen [Motrin 800 MG tab] 800 mg PO Q8HR PRN #30 tablet 07/31/20 Unknown Rx Metoprolol [Lopressor TAB] 12.5 mg PO BID #60 tablet 07/31/20 Unknown Rx methylPREDNISolone [Medrol 4MG 4 mg PO DAILY #1 tab.ds.pk 07/31/20 Unknown Rx DOSEPAK (21 tabs)] Upper Extremity Exam - Exam General: Vital signs noted. No distress. Alert and acting appropriately. Head and Torso: No HEENT Abnormality, No Chest/Lungs Abnormality Shoulder Exam: Yes Normal Range of Motion in Shoulder, No Shoulder Tenderness, No Clavicle Tenderness, No Shoulder Deformity, No AC Joint Tenderness Arm Exam: No Arm/Humerus Tenderness, No Arm Deformity Elbow: Yes Normal Range of Motion in Elbow, No Elbow Tenderness, No Elbow Deformity Forearm: No Forearm Tenderness, No Forearm Deformity, No Pain with Pronation, No Pain with Supination Wrist: Yes Wrist Tenderness (Mild tenderness to palpation to the volar aspect of the right wrist), Yes Normal ROM in Wrist, No Wrist Deformity, No Snuffbox Tenderness Hand: Yes Hand Tenderness (Patient has tenderness over over the first metacarpal, as well as the thumb and she has tenderness over the third metacarpal bone as well as that third finger of the right hand), No Hand Deformity, No Normal ROM in Digit(s) (She appears to have normal range of motion of wrist, hand and fingers but she does have pain with movement especially of the right thumb.), No Digit(s) Deformity, No Tendon Dysfunction CMS Exam: Yes Normal Distal Pulses, Yes Normal Capillary Refill, Yes Normal Distal Sensation, No Broken Skin ED Course Vital Signs 07/31/20 19:15 Temperature 98.8 F Pulse Rate 94 H Respiratory 18 Rate Blood Pressure 169/121 O2 Sat by Pulse 98 Oximetry ED Medical Decision Making - Medical Decision Making Suspect tendinitis and/or carpal tunnel syndrome at this time. Physical exam does not suggest septic joint, cellulitis, acute arterial occlusion, DVT or any other acute emergent conditions requiring any work-up at this time. Discussed suspected diagnosis with patient as well as treatment plan. Patient blood pressure noted to be elevated at triage she admits that she has been out of Lopressor for a while but she did take her lisinopril today. She has no symptoms related to hypertension. Repeat of her blood pressure showed improvement without intervention. Patient is not toxic or ill-appearing. Patient stable at time of discharge. Critical care attestation.: If time is entered above; I have spent that time in minutes in the direct care of this critically ill patient, excluding procedure time. ED Disposition Clinical Impression: Tendonitis of right hand, Carpal tunnel syndrome of right wrist, Hypertension, Non compliance w medication regimen Disposition: DC-01 TO HOME OR SELFCARE Is pt being admited?: No Does the pt Need Aspirin: No Condition: Stable Instructions: Carpal Tunnel Syndrome, [id number], Tendinitis, Hypertension, Adult, [id number], Hypertension (ED) Additional Instructions: I recommend that you wear the wrist splint every day and of course take it out when you shower and you can also go to work with the wrist splint. Take the Motrin and the prednisone as prescribed. Continue taking your lisinopril and restart your Lopressor take any daily as prescribed. Follow-up with carburetor specialist and/or primary care doctor listed on your discharge instructions in 1 week. Return to the ER if your symptoms worsens Prescriptions: Metoprolol [Lopressor TAB] 12.5 mg PO BID #60 tablet methylPREDNISolone [Medrol 4MG DOSEPAK (21 tabs)] 4 mg PO DAILY #1 tab.ds.pk Ibuprofen [Motrin 800 MG tab] 800 mg PO Q8HR PRN #30 tablet PRN Reason: Pain Referrals: MICHELLE WHYTE MD [Staff Physician] - 3-5 Days Forms: Work/School Release Form(ED) Time of Disposition: 19:46
[2020-07-31 19:46] VITALS: BP 159/97
== END 2020-07-31 19:55 | disposition home or self-care (01) ==
LOC: ED 16:11
DX: M77.8 Other enthesopathies, not elsewhere classified (principal); I10 Essential (primary) hypertension; G56.01 Carpal tunnel syndrome, right upper limb; Z91.19 Patient's noncompliance with other medical treatment and regimen; G43.909 Migraine, unspecified, not intractable, without status migrainosus; Z98.51 Tubal ligation status; Z95.818 Presence of other cardiac implants and grafts; Z98.890 Other specified postprocedural states
CPT/HCPCS: 99282

== ENCOUNTER 2020-11-25 10:38 | Emergency (ER) | payer SELFPAY ==
--- NOTE | 2020-11-25 10:58 | Emergency Department Report ---
ED General Adult HPI - General Stated complaint: EXCESSIVE URINATION/LEG PAIN Time Seen by Provider: 11/25/20 10:54 Source: patient Mode of arrival: Ambulatory Limitations: No Limitations - History of Present Illness Initial comments: Patient is a 45-year-old female presents emergency room complaints of polydipsia, polyuria, dry mouth that began a week ago. She states that her mother has a history of diabetes. She has never personally been diagnosed with diabetes. She denies any chest pain, shortness of breath, fever, nausea, vomiting, diarrhea, cough, abdominal pain. She has a past medical history of hypertension and is supposed to be taking lisinopril but states she has been out for 4 months. She denies any allergies to medications. She states it has been approximately 2 years since she has had a routine physical with a healthcare provider. - Related Data Previous Rx's Medication Instructions Recorded Last Taken Type Aspirin [Aspirin BABY CHEW TAB] 81 mg PO QDAY tab.chew 07/03/14 07/14/14 Rx Nitroglycerin [Nitrostat] 0.4 mg SL Q5M PRN #30 tab 07/03/14 07/14/14 Rx Acetaminophen/Codeine [Tylenol #3] 1 tab PO Q6H PRN #14 tab 07/15/14 Unknown Rx Metoprolol [Lopressor TAB] 12.5 mg PO BID #60 tablet 07/29/15 Unknown Rx HYDROcodone/APAP 7.5-325 [[place] 1 each PO Q8HR PRN #10 tablet 10/10/15 Unknown R x 7.5-325 mg TAB] Cyclobenzaprine HCl [Flexeril 5 MG 5 mg PO TID PRN #15 tab 08/02/17 Unknown Rx TAB] Naproxen 500 mg PO TID PRN #15 tablet 08/02/17 Unknown Rx lisinopriL [Prinivil] 10 mg PO DAILY #30 tablet 08/02/17 Unknown Rx Amoxicillin [Amoxicillin TAB] 875 mg PO BID #20 tablet 01/17/20 Unknown Rx Chlorhexidine Mouthwash [Peridex] 15 ml MM BID #1 bottle 01/17/20 Unknown Rx Ketorolac [Toradol] 10 mg PO Q6H PRN #15 tablet 01/17/20 Unknown Rx Lidocaine Viscous 2% 5 ml MM Q3H PRN #120 udc 01/17/20 Unknown Rx Chlorhexidine Mouthwash [Peridex] 15 ml MM BID #1 bottle 03/17/20 Unknown Rx Clindamycin [Clindamycin CAP] 300 mg PO Q8H #21 cap 03/17/20 Unknown Rx Naproxen 500 mg PO Q12H PRN #12 tablet 03/17/20 Unknown Rx Ibuprofen [Motrin 800 MG tab] 800 mg PO Q8HR PRN #30 tablet 07/31/20 Unknown Rx methylPREDNISolone [Medrol 4MG 4 mg PO DAILY #1 tab.ds.pk 07/31/20 Unknown Rx DOSEPAK (21 tabs)] Metoprolol [Lopressor TAB] 12.5 mg PO BID #60 tablet 11/25/20 Unknown Rx lisinopriL [Zestril TAB] 10 mg PO QDAY #30 tablet 11/25/20 Unknown Rx metFORMIN [Glucophage] 500 mg PO BID 30 Days #60 tablet 11/25/20 Unknown Rx Allergies Allergy/AdvReac Type Severity Reaction Status Date / Time No Known Allergies Allergy Verified 03/17/20 12:28 ED Review of Systems ROS: Stated complaint: EXCESSIVE URINATION/LEG PAIN Other details as noted in HPI Comment: All other systems reviewed and negative ED Past Medical Hx - Past Medical History Hx Hypertension: Yes Hx Heart Attack/AMI: Yes (normal cardiac catheterization and echocardiogram, July 2014) Hx Headaches / Migraines: Yes Additional medical history: sickle cell trait - Surgical History Additional Surgical History: tubal ligation. Cardiac cauterization July 04, 2014 - Social History Smoking Status: Never Smoker Substance Use Type: None - Medications Home Medications: Home Medications Medication Instructions Recorded Confirmed Last Taken Type Aspirin [Aspirin BABY CHEW TAB] 81 mg PO QDAY tab.chew 07/03/14 07/14/14 07/14/14 Rx Nitroglycerin [Nitrostat] 0.4 mg SL Q5M PRN #30 tab 07/03/14 07/14/14 07/14/14 Rx Acetaminophen/Codeine [Tylenol #3] 1 tab PO Q6H PRN #14 tab 07/15/14 Unknown Rx Metoprolol [Lopressor TAB] 12.5 mg PO BID #60 tablet 07/29/15 Unknown Rx HYDROcodone/APAP 7.5-325 [[place] 1 each PO Q8HR PRN #10 tablet 10/10/15 Unknown Rx 7.5-325 mg TAB] Cyclobenzaprine HCl [Flexeril 5 MG 5 mg PO TID PRN #15 tab 08/02/17 Unknown Rx TAB] Naproxen 500 mg PO TID PRN #15 tablet 08/02/17 Unknown Rx lisinopriL [Prinivil] 10 mg PO DAILY #30 tablet 08/02/17 Unknown Rx Amoxicillin [Amoxicillin TAB] 875 mg PO BID #20 tablet 01/17/20 Unknown Rx Chlorhexidine Mouthwash [Peridex] 15 ml MM BID #1 bottle 01/17/20 Unknown Rx Ketorolac [Toradol] 10 mg PO Q6H PRN #15 tablet 01/17/20 Unknown Rx Lidocaine Viscous 2% 5 ml MM Q3H PRN #120 udc 01/17/20 Unknown Rx Chlorhexidine Mouthwash [Peridex] 15 ml MM BID #1 bottle 03/17/20 Unknown Rx Clindamycin [Clindamycin CAP] 300 mg PO Q8H #21 cap 03/17/20 Unknown Rx Naproxen 500 mg PO Q12H PRN #12 tablet 03/17/20 Unknown Rx Ibuprofen [Motrin 800 MG tab] 800 mg PO Q8HR PRN #30 tablet 07/31/20 Unknown Rx methylPREDNISolone [Medrol 4MG 4 mg PO DAILY #1 tab.ds.pk 07/31/20 Unknown Rx DOSEPAK (21 tabs)] Metoprolol [Lopressor TAB] 12.5 mg PO BID #60 tablet 11/25/20 Unknown Rx lisinopriL [Zestril TAB] 10 mg PO QDAY #30 tablet 11/25/20 Unknown Rx metFORMIN [Glucophage] 500 mg PO BID 30 Days #60 tablet 11/25/20 Unknown Rx ED Physical Exam - General Limitations: No Limitations General appearance: alert, in no apparent distress - Head Head exam: Present: atraumatic, normocephalic - Eye Eye exam: Present: normal appearance - ENT ENT exam: Present: mucous membranes moist - Respiratory Respiratory exam: Present: normal lung sounds bilaterally. Absent: respiratory distress, wheezes, rales, rhonchi, stridor, chest wall tenderness, accessory muscle use, decreased breath sounds, prolonged expiratory - Cardiovascular Cardiovascular Exam: Present: regular rate, normal rhythm, normal heart sounds. Absent: systolic murmur, diastolic murmur, rubs, gallop - Neurological Exam Neurological exam: Present: alert, oriented X3 - Psychiatric Psychiatric exam: Present: normal affect, normal mood - Skin Skin exam: Present: warm, dry, intact ED Course Vital Signs 11/25/20 11/25/20 11:04 15:00 Temperature 98.5 F Pulse Rate 111 H 92 H Respiratory 16 18 Rate Blood Pressure 191/126 Blood Pressure 159/115 [Right] O2 Sat by Pulse 98 98 Oximetry ED Medical Decision Making - Lab Data Result diagrams: 11/25/20 11:13 11/25/20 11:13 Lab Results 11/25/20 11/25/20 11/25/20 Range/Units 10:46 11:12 11:13 WBC 7.5 (4.5-11.0) K/mm3 RBC 4.92 (3.65-5.03) M/mm3 Hgb 13.1 (10.1-14.3) gm/dl Hct 41.0 (30.3-42.9) % MCV 83 (79-97) fl MCH 27 L (28-32) pg MCHC 32 (30-34) % RDW 13.9 (13.2-15.2) % Plt Count 255 (140-440) K/mm3 Lymph % (Auto) 28.6 (13.4-35.0) % [place] % (Auto) 5.6 (0.0-7.3) % Eos % (Auto) 0.4 (0.0-4.3) % Baso % (Auto) 0.3 (0.0-1.8) % Lymph # (Auto) 2.2 (1.2-5.4) K/mm3 [place] # (Auto) 0.4 (0.0-0.8) K/mm3 Eos # (Auto) 0.0 (0.0-0.4) K/mm3 Baso # (Auto) 0.0 (0.0-0.1) K/mm3 Seg Neutrophils % 65.1 (40.0-70.0) % Seg Neutrophils # 4.9 (1.8-7.7) K/mm3 VBG pH (7.320-7.420) Sodium (137-145) mmol/L Potassium (3.6-5.0) mmol/L Chloride (98-107) mmol/L Carbon Dioxide (22-30) mmol/L Anion Gap mmol/L BUN (7-17) mg/dL Creatinine (0.6-1.2) mg/dL Estimated GFR ml/min BUN/Creatinine Ratio % Glucose (65-100) mg/dL POC Glucose 511 H (70-105) mg/dL Calcium (8.4-10.2) mg/dL Total Bilirubin (0.1-1.2) mg/dL AST (5-40) units/L ALT (7-56) units/L Alkaline Phosphatase (35-129) units/L Total Protein (6.3-8.2) g/dL Albumin (3.9-5) g/dL Albumin/Globulin Ratio % Urine Color Straw (Yellow) Urine Turbidity Clear (Clear) Urine pH 6.0 (5.0-7.0) Ur Specific [place] 1.033 H (1.003-1.030) Urine Protein <15 mg/dl (Negative) mg/dL Urine Glucose (UA) >=500 (Negative) mg/dL Urine Ketones Neg (Negative) mg/dL Urine Blood Neg (Negative) Urine Nitrite Neg (Negative) Urine Bilirubin Neg (Negative) Urine Urobilinogen < 2.0 (<2.0) mg/dL Ur Leukocyte Esterase Neg (Negative) Urine WBC (Auto) 1.0 (0.0-6.0) /HPF Urine RBC (Auto) 5.0 (0.0-6.0) /HPF U Epithel Cells (Auto) 2.0 (0-13.0) /HPF 11/25/20 11/25/20 11/25/20 Range/Units 11:13 11:13 14:37 WBC (4.5-11.0) K/mm3 RBC (3.65-5.03) M/mm3 Hgb (10.1-14.3) gm/dl Hct (30.3-42.9) % MCV (79-97) fl MCH (28-32) pg MCHC (30-34) % RDW (13.2-15.2) % Plt Count (140-440) K/mm3 Lymph % (Auto) (13.4-35.0) % [place] % (Auto) (0.0-7.3) % Eos % (Auto) (0.0-4.3) % Baso % (Auto) (0.0-1.8) % Lymph # (Auto) (1.2-5.4) K/mm3 [place] # (Auto) (0.0-0.8) K/mm3 Eos # (Auto) (0.0-0.4) K/mm3 Baso # (Auto) (0.0-0.1) K/mm3 Seg Neutrophils % (40.0-70.0) % Seg Neutrophils # (1.8-7.7) K/mm3 VBG pH 7.329 (7.320-7.420) Sodium 133 L (137-145) mmol/L Potassium 4.4 (3.6-5.0) mmol/L Chloride 94.3 L (98-107) mmol/L Carbon Dioxide 24 (22-30) mmol/L Anion Gap 19 mmol/L BUN 7 (7-17) mg/dL Creatinine 0.9 (0.6-1.2) mg/dL Estimated GFR > 60 ml/min BUN/Creatinine Ratio 8 % Glucose 551 H* (65-100) mg/dL POC Glucose 280 H (70-105) mg/dL Calcium 9.7 (8.4-10.2) mg/dL Total Bilirubin 0.30 (0.1-1.2) mg/dL AST 25 (5-40) units/L ALT 34 (7-56) units/L Alkaline Phosphatase 136 H (35-129) units/L Total Protein 7.3 (6.3-8.2) g/dL Albumin 4.1 (3.9-5) g/dL Albumin/Globulin Ratio 1.3 % Urine Color (Yellow) Urine Turbidity (Clear) Urine pH (5.0-7.0) Ur Specific [place] (1.003-1.030) Urine Protein (Negative) mg/dL Urine Glucose (UA) (Negative) mg/dL Urine Ketones (Negative) mg/dL Urine Blood (Negative) Urine Nitrite (Negative) Urine Bilirubin (Negative) Urine Urobilinogen (<2.0) mg/dL Ur Leukocyte Esterase (Negative) Urine WBC (Auto) (0.0-6.0) /HPF Urine RBC (Auto) (0.0-6.0) /HPF U Epithel Cells (Auto) (0-13.0) /HPF - Medical Decision Making Patient is a 45-year-old female presents emergency room complaints of polydipsia, polyuria, dry mouth that began a week ago. She states that her mother has a history of diabetes. She has never personally been diagnosed with diabetes. She denies any chest pain, shortness of breath, fever, nausea, vomiting, diarrhea, cough, abdominal pain. She has a past medical history of hypertension and is supposed to be taking lisinopril but states she has been out for 4 months. She denies any allergies to medications. She states it has been approximately 2 years since she has had a routine physical with a healthcare provider. Initial vitals with elevated heart rate and blood pressure. On repeat her heart rate has improved. Patient has been out of her blood pressure medication for 4 months, she states that she takes lisinopril and metoprolol, patient is not having any symptoms related to her elevated blood pressure, the up-to-date medical literature does not recommend emergently lowering asymptomatic elevated blood pressure. Labs significant for elevated blood glucose of 551 and mild dehydration. Venous pH is normal, no ketones present in the urine. Patient given 1 L normal saline and 8 units of IV insulin and her repeat Accu-Chek is 280. Patient given refill of her home medications. Patient will be started on Metformin. Discussed lifestyle modifications with patient. Discussed the importance of outpatient primary care follow-up for management of her chronic conditions. Advised patient please take medication as prescribed. follow up with a primary care doctor. eat a low sodium/low carbohydrate diet. please check your blood sugar and blood pressure regularly. incorporate 30-60 minutes of daily exercise. return the emergency room for any new or worsening symptoms. Critical care attestation.: If time is entered above; I have spent that time in minutes in the direct care of this critically ill patient, excluding procedure time. ED Disposition Clinical Impression: Elevated blood pressure reading, Non compliance with medical treatment Diabetes Qualifiers: Diabetes mellitus type: type 2 Diabetes mellitus intermodal dispatcher insulin use: without intermodal dispatcher use Diabetes mellitus complication status: with hyperglycemia Qualified Code(s): E11.65 - Type 2 diabetes mellitus with hyperglycemia Disposition: 01 HOME / SELF CARE / HOMELESS Is pt being admited?: No Does the pt Need Aspirin: No Condition: Stable Instructions: Type 2 Diabetes Mellitus, Diagnosis, Adult, [id number], Hypertension, Adult, Diabetes Mellitus Type 2 in Adults (ED) Additional Instructions: please take medication as prescribed. follow up with a primary care doctor. eat a low sodium/low carbohydrate diet. please check your blood sugar and blood pressure regularly. incorporate 30-60 minutes of daily exercise. return the emergency room for any new or worsening symptoms. Prescriptions: metFORMIN [Glucophage] 500 mg PO BID 30 Days #60 tablet Metoprolol [Lopressor TAB] 12.5 mg PO BID #60 tablet lisinopriL [Zestril TAB] 10 mg PO QDAY #30 tablet Referrals: QIAN CUELLO MD [Primary Care Provider] - 3-5 Days MICHELLE WHYTE MD [Staff Physician] - 3-5 Days [facility] [Provider Group] - 3-5 Days Time of Disposition: 14:41 Print Language: GRENADI[place]
[2020-11-25] MEDS ORDERED: SODIUM CHLORIDE 0.9% 1000 ML 1,000 ML IV ONE (11:12)
[2020-11-25 11:40] LABS: Bilirubin,Urine NEG (Negative); Blood,Urine NEG (Negative); Color,Urine Straw (Yellow); Protein,Urine <15 mg/dL mg/dL (Negative); Urobilinogen,Urine < 2.0 mg/dL (<2.0)
[2020-11-25 12:56] LABS: Basophils % (Auto) 0.3 % (0.0-1.8); Eosinophils % (Auto) 0.4 % (0.0-4.3); Hemoglobin 13.1 gm/dl (10.1-14.3); Lymphocytes # (Auto) 2.2 K/mm3 (1.2-5.4); Lymphocytes % (Auto) 28.6 % (13.4-35.0); Mean Corpuscular HGB Conc 32 % (30-34); Mean Corpuscular Volume 83 fl (79-97); Monocytes # (Auto) 0.4 K/mm3 (0.0-0.8); Monocytes % (Auto) 5.6 % (0.0-7.3); Platelet Count 255 K/mm3 (140-440); Red Blood Count 4.92 M/mm3 (3.65-5.03); Red Cell Distribution Width 13.9 % (13.2-15.2)
[2020-11-25 13:11] LABS: Alanine Aminotransferase 34 units/L (7-56); Albumin 4.1 g/dL (3.9-5); BUN/Creatinine Ratio 8; Blood Urea Nitrogen 7 mg/dL (7-17); Calcium 9.7 mg/dL (8.4-10.2); Hemolysis Index 9
[2020-11-25] MEDS ORDERED: INSULIN REGULAR, HUMAN 100 UNITS/1 ML IV ONE (13:28)
[2020-11-25 15:01] VITALS: BP 191/126
== END 2020-11-25 15:04 | disposition home or self-care (01) ==
LOC: ED 10:38
DX: R03.0 Elevated blood-pressure reading, without diagnosis of hypertension (principal); R35.8 Other polyuria; E11.9 Type 2 diabetes mellitus without complications; R63.1 Polydipsia; I10 Essential (primary) hypertension; G43.909 Migraine, unspecified, not intractable, without status migrainosus; Z98.51 Tubal ligation status; Z79.82 Long term (current) use of aspirin; Z79.84 Long term (current) use of oral hypoglycemic drugs; Z79.899 Other long term (current) drug therapy
CPT/HCPCS: 36415; 80053; 81001; 82805; 82962; 85025; 96361; 96374; 99283; J7030; J1815